=== PATIENT | female | born 1985 | race American Indian/Alaskan Native ===

== ENCOUNTER 2017-04-07 19:04 | Emergency (ER) | payer MEDICAID, OTHER, SELFPAY ==
[2017-04-07 19:21] VITALS: BP 108/58
[2017-04-07] MEDS ORDERED: Sodium Chloride 0.9% 1,000 ML IV ONE (19:24)
[2017-04-07 20:08] LABS: CHLORIDE,CL 107 mmol/L (101-111); SODIUM,NA 138 mmol/L (135-145)
[2017-04-07] MEDS ORDERED: Levofloxacin/Dextrose 5%-Water 500 MG in Premix Bag 1 BAG IV ONE (20:17)
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
[2017-04-07] MEDS ORDERED: Ketorolac 30 MG/ML SDV IVPUSH ONE (20:55)
[2017-04-07] MEDS ORDERED: Ondansetron 4 MG/2 ML SDV IV ONE (20:56)
[2017-04-07] MEDS ORDERED: Acetaminophen/HYDROcodone 325-10 MG Tab ONE (21:47)
[2017-04-07] MEDS ORDERED: Acetaminophen/HYDROcodone 325-10 MG Tab PO ONE (21:48)
[2017-04-07] MEDS ORDERED: Ciprofloxacin 500 MG Tab ONE (21:48)
[2017-04-07] MEDS ORDERED: Ciprofloxacin 500 MG Tab PO ONE (21:48)
[2017-04-07] MEDS ORDERED: Phenazopyridine 95 MG Tab ONE (21:48)
[2017-04-07] MEDS ORDERED: Phenazopyridine 95 MG Tab PO ONE (21:48)
== END 2017-04-07 21:58 | disposition home or self-care (01) ==
LOC: DL.ED 19:04
DX: N12 Tubulo-interstitial nephritis, not specified as acute or chronic (principal); Z87.442 Personal history of urinary calculi; Z87.440 Personal history of urinary (tract) infections; Z98.890 Other specified postprocedural states
CPT/HCPCS: 36415; 74176; 80053; 80305; 81001; 81025; 82150; 83605; 83690; 85025; 87040; 87086; 96365; 96367; 96375; 99284; A9270; J1885; J1956; J2405; J7030; 87077; 87088; 87186

== ENCOUNTER 2017-09-24 15:12 | Emergency (ER) | payer MEDICAID, OTHER ==
[2017-09-24 15:26] VITALS: BP 109/93
[2017-09-24] MEDS ORDERED: Lidocaine 2% Viscous Solution 15 ML Cup PO ONE (16:00)
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
== END 2017-09-24 16:11 | disposition home or self-care (01) ==
LOC: DL.ED 15:12
DX: K04.7 Periapical abscess without sinus (principal); F17.210 Nicotine dependence, cigarettes, uncomplicated
CPT/HCPCS: 99282; A9270

== ENCOUNTER 2018-06-02 20:28 | Emergency (ER) | payer MEDICAID, OTHER ==
[2018-06-02] MEDS ORDERED: Sodium Chloride 0.9% 1,000 ML IV SCH (20:45)
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
[2018-06-02 21:12] VITALS: BP 94/51
[2018-06-02] MEDS ORDERED: Ketorolac 30 MG/ML SDV IVPUSH ONE (21:18)
[2018-06-02 21:23] LABS: ANION GAP 9.4; CHLORIDE,CL 108 mmol/L (101-111); SODIUM,NA 139 mmol/L (135-145)
[2018-06-02] MEDS ORDERED: cefTRIAXone 1 GM Vial IVPUSH ONE (22:23)
== END 2018-06-02 22:40 | disposition home or self-care (01) ==
LOC: DL.ED 20:28
DX: N39.0 Urinary tract infection, site not specified (principal); E11.9 Type 2 diabetes mellitus without complications; Z87.442 Personal history of urinary calculi; Z87.440 Personal history of urinary (tract) infections
CPT/HCPCS: 36415; 74176; 80053; 80305; 81001; 81025; 83605; 85025; 96365; 96366; 96375; 99284; J0696; J1885; J7030